=== PATIENT | male | born 1960 ===

== ENCOUNTER 2017-03-12 17:27 | Emergency (ER) | payer OTHER ==
[2017-03-12 17:35] VITALS: RESP 18; TEMP 97.4; O2SAT 98
[2017-03-12] MEDS ORDERED: Bacitracin 500 Units/gm Oint Foilpak UD TOP ONE (18:24)
--- NOTE | 2017-03-12 18:24 | C.PDOC ---
History Of Present Illness 56 y/o male presents to ED for evaluation on right lateral hand laceration. Patient reports cutting his hand on a fan today. At ED patient given Tetanus vaccine. Patient denies weakness, numbness or any other complaints. Time Seen by Provider: 03/12/17 18:21 Chief Complaint (Nursing): Abnormal Skin Integrity History Per: Patient History/Exam Limitations: no limitations Onset/Duration Of Symptoms: Hrs Location Of Injury: Right: Hand Quality Of Symptoms: Painful Past Medical History Reviewed: Historical Data, Nursing Documentation, Vital Signs Vital Signs: Last Vital Signs Temp 97.4 F L 03/12/17 17:33 Pulse 72 03/12/17 19:37 Resp 18 03/12/17 19:37 BP 122/69 03/12/17 19:37 Pulse Ox 98 03/15/17 12:23 Family History: States: No Known Family Hx - Social History Hx Alcohol Use: No Hx Substance Use: No Review Of Systems Constitutional: Negative for: Fever, Chills Gastrointestinal: Negative for: Nausea, Vomiting, Diarrhea Musculoskeletal: Positive for: Hand Pain. Negative for: Shoulder Pain Neurological: Negative for: Weakness, Numbness, Dizziness Physical Exam - Physical Exam Appears: Non-toxic, No Acute Distress Skin: Normal Color, Warm Head: Atraumatic, Normacephalic Extremity: Normal ROM, No Deformity, Other (2 cm lac from lateral hand to proximal 5th finger, right) Pulses: Right Radial: Normal Neurological/Psych: Oriented x3, Normal Motor, Normal Sensation ED Course And Treatment O2 Sat by Pulse Oximetry: 98 (RA) Pulse Ox Interpretation: Normal Laceration - Laceration Repair right hand Wound Length (In cm): 2 Description Of Wound: Linear Wound Cleansed With: Betadine Anesthesia: Lidocaine 1% Wound Examination: Irrigated With Saline, No FB With Wound Exploration, No Tendon Injury With Wound Exploration Wound Closure: Suture (4-0 ethilon, 4 sutures) Suture Technique And Material Used: Interrupted Wound Complexity: Simple Disposition Counseled Patient/Family Regarding: Diagnosis, Need For Followup, Rx Given - Disposition Referrals: [facility] [Outside] [facility] [Outside] Disposition: HOME/ ROUTINE Disposition Time: 18:59 Condition: STABLE Additional Instructions: Mantenga la herida limpia y seca. Cambiar el vendaje diariamente y aplicar el ungento antibitico. Volver a ER para cualquier signo de infeccin efrem enrojecimiento, hinchazn o pus de la herida. Tylenol o Motrin para el dolor. Suture removal in 10 days. 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 - Scribe Statement The provider has reviewed the documentation as recorded by the Mandaibsaulo Ballesteros All medical record entries made by the Mandaibsaulo were at my direction and personally dictated by me. I have reviewed the chart and agree that the record accurately reflects my personal performance of the history, physical exam, medical decision making, and the department course for this patient. I have also personally directed, reviewed, and agree with the discharge instructions and disposition.
[2017-03-12] MEDS ORDERED: Bacitracin 500 Units/gm Oint Foilpak UD ONE (18:40)
[2017-03-12 19:38] VITALS: BP 122/69; PULSE 72
== END 2017-03-12 19:43 | disposition home or self-care (01) ==
LOC: C.ER 17:27
DX: S61.411A Laceration without foreign body of right hand, initial encounter (principal); W45.8XXA Other foreign body or object entering through skin, initial encounter; Y93.89 Activity, other specified; Y92.009 Unspecified place in unspecified non-institutional (private) residence as the place of occurrence of the external cause